=== PATIENT | male | born 1960 | race Caucasian/White ===

== ENCOUNTER 2021-06-18 06:03 | Observation (INO) ==
[2021-06-18] MEDS ORDERED: CeFAZolin Syr 2,000MG/20 ML 2,000 MG/20 ML SYRINGE IVPB ONE (06:19)
[2021-06-18] MEDS ORDERED: Ringers Solution, Lactated 1,000 ML IVC SCH ×2 (06:30→16:26)
[2021-06-18] MEDS ORDERED: Promethazine 6.25 MG in Water for inj. (sterile) 20 ML IVPB PRN (06:47)
[2021-06-18] MEDS ORDERED: *HR* OxyCODONE Immed Rel 5 MG TABLET PO PRN (06:47)
[2021-06-18] MEDS ORDERED: Albuterol 2.5 MG/3 ML NEBULIZER IH PRN (06:47)
[2021-06-18] MEDS ORDERED: Ondansetron 4 MG/2 ML VIAL IVP PRN ×2 (06:47→16:26)
[2021-06-18] MEDS ORDERED: *HR* Labetalol 20 MG/4 ML SYRINGE IVP PRN (06:47)
[2021-06-18] MEDS ORDERED: Acetaminophen IV 1,000 MG/100 ML BAG IVPB ONE (07:00)
[2021-06-18] MEDS ORDERED: Gabapentin 300 MG CAPSULE PO ONE (07:00)
[2021-06-18] MEDS ORDERED: Famotidine 20 MG/2 ML VIAL IVP ONE (07:00)
[2021-06-18] MEDS ORDERED: tiZANidine 4 MG TABLET PO PRN (07:00)
[2021-06-18] MEDS ORDERED: *HR* Remifentanil 2 MG VIAL IVP ONE (07:13)
[2021-06-18] MEDS ORDERED: Lidocaine -MPF 2% 5 ML VIAL ONE (07:18)
[2021-06-18] MEDS ORDERED: Vancomycin 1,000 MG VIAL ONE (07:18)
[2021-06-18] MEDS ORDERED: *HR* Rocuronium Bromide 50 MG/5 ML VIAL ONE (07:18)
[2021-06-18] MEDS ORDERED: *HR* FentaNYL (PF) 100 MCG/2 ML VIAL ONE (07:18)
[2021-06-18] MEDS ORDERED: *HR* Succinylcholine 200 MG/10 ML VIAL IVP ONE (07:18)
[2021-06-18] MEDS ORDERED: Ondansetron 4 MG/2 ML VIAL ONE (07:18)
[2021-06-18] MEDS ORDERED: *HR* Midazolam HCl 2 MG/2 ML VIAL ONE (07:19)
[2021-06-18] MEDS ORDERED: *HR* Propofol 200 MG/20 ML VIAL IVP ONE (07:19)
[2021-06-18] MEDS ORDERED: EPHEDrine 50 MG/ML VIAL ONE (07:21)
[2021-06-18] MEDS ORDERED: *HR* OxyCODONE Immed Rel 5 MG TABLET PO ONE (07:30)
[2021-06-18] MEDS ORDERED: Polymyxin B Sulfate 500,000 UNIT, Sodium Chloride IRRigation 1,000 ML IR ONE (07:45)
[2021-06-18] MEDS ORDERED: Gentamicin 80 MG/2 ML VIAL ONE (08:01)
[2021-06-18] MEDS ORDERED: Bupivacaine/EPI 1:200k 0.25% 50 ML VIAL ONE (08:40)
[2021-06-18] MEDS ORDERED: *HR* Remifentanil 1 MG VIAL IVP ONE ×3 (10:13→12:54)
[2021-06-18] MEDS ORDERED: 0.9 % Sodium Chloride 300 ML ONE (10:14)
[2021-06-18] MEDS: *HR* HYDROmorphone PF 0.5 MG/0.5 ML SYRINGE IVP PRN ×2 (15:20→15:30)
[2021-06-18] MEDS ORDERED: Naloxone 0.4 MG/ML INJ IVP PRN (16:26)
[2021-06-18] MEDS ORDERED: Sennosides 8.6 MG TABLET PO PRN (16:26)
[2021-06-18] MEDS: Acetaminophen 325 MG TABLET PO SCH ×2 (17:43→23:33)
[2021-06-18] MEDS: CeFAZolin 2 GM/120 ML BAG IVPB SCH (17:44)
[2021-06-18] MEDS: tiZANidine 4 MG TABLET PO PRN (17:44)
[2021-06-18] MEDS: *HR* OxyCODONE Immed Rel 5 MG TABLET PO PRN (21:47)
[2021-06-19] MEDS: CeFAZolin 2 GM/120 ML BAG IVPB SCH (02:37)
[2021-06-19] MEDS: *HR* OxyCODONE Immed Rel 5 MG TABLET PO PRN ×3 (04:16→23:12)
[2021-06-19] MEDS: Acetaminophen 325 MG TABLET PO SCH ×4 (05:28→23:12)
[2021-06-19] MEDS: *HR* HYDROcodone/Acet 5/325 mg TABLET PO PRN (08:39)
[2021-06-19] MEDS: tiZANidine 4 MG TABLET PO PRN (09:29)
[2021-06-19] MEDS: *HR* Heparin 5,000 UNIT/ML VIAL SQ SCH (18:23)
[2021-06-20] MEDS: *HR* Heparin 5,000 UNIT/ML VIAL SQ SCH ×3 (05:26→20:55)
[2021-06-20] MEDS: *HR* OxyCODONE Immed Rel 5 MG TABLET PO PRN ×3 (05:26→20:54)
[2021-06-20] MEDS: Acetaminophen 325 MG TABLET PO SCH ×3 (05:26→18:08)
[2021-06-20] MEDS: *HR* HYDROcodone/Acet 5/325 mg TABLET PO PRN (09:49)
[2021-06-20] MEDS: tiZANidine 4 MG TABLET PO PRN (09:49)
[2021-06-21] MEDS: Acetaminophen 325 MG TABLET PO SCH ×5 (00:51→23:20)
[2021-06-21] MEDS: *HR* Heparin 5,000 UNIT/ML VIAL SQ SCH ×3 (05:32→22:21)
[2021-06-21] MEDS: *HR* OxyCODONE Immed Rel 5 MG TABLET PO PRN ×2 (08:22→20:54)
[2021-06-21] MEDS: tiZANidine 4 MG TABLET PO PRN (16:25)
[2021-06-21 19:43] LABS: Hematocrit 30.8 % (37.5-50.1)
[2021-06-21 19:45] LABS: Hemoglobin 10.2 g/dL (12.9-16.9)
[2021-06-22] MEDS: *HR* OxyCODONE Immed Rel 5 MG TABLET PO PRN ×2 (03:27→09:46)
[2021-06-22] MEDS: Acetaminophen 325 MG TABLET PO SCH ×2 (05:35→12:28)
[2021-06-22] MEDS: *HR* Heparin 5,000 UNIT/ML VIAL SQ SCH (05:36)
[2021-06-22 10:49] VITALS: BP 154/77; PULSE 88; TEMP 97.5; O2SAT 96
== END 2021-06-22 16:30 | disposition home health service (06) ==
LOC: SDCAOSI 06:03 → 4WAOSI 06:03
PROVIDERS: ADMIT Student in an Organized Health Care Education/Training Program; ATTEND Student in an Organized Health Care Education/Training Program